=== PATIENT | female | born 1950 | race Caucasian/White ===

== ENCOUNTER → 2016-12-05 | Outpatient (CLI) | payer BC, OTHER ==
--- NOTE | 2016-12-05 13:33 | DIAGNOSTIC IMAGING REPORT ---
RIGHT ANKLE MIN 3 VIEWS CLINICAL HISTORY: 66 years-old Female presenting with RIGHT ANKLE PAIN Right. TECHNIQUE: Frontal, mortise, and lateral views of the right ankle were obtained. COMPARISON: None. FINDINGS: Smooth margined osseous fragment noted inferior to the medial malleolus possibly representing prior transversely oriented avulsion fracture with nonunion versus developmental os. No acute fracture or malalignment. Ankle mortise intact. Prominent bone spurs at the posterior and inferior calcaneus. No significant degenerative change. No second soft tissue swelling. IMPRESSION: No acute osseous injury of the right ankle. Findings suggestive of prior avulsion fracture at the medial malleolus versus developmental os. Electronically signed by: Kamari Suh M.D. 12/05/2016 1:32 PM Dictated Date/Time: 12/05/2016 1:30 PM
== END | disposition home or self-care (01) ==
LOC: C.RDSM 08:05
PROVIDERS: ATTEND Family Medicine
DX: M25.571 Pain in right ankle and joints of right foot (principal)

== ENCOUNTER → 2017-01-16 | Outpatient (CLI) | payer OTHER ==
--- NOTE | 2017-01-16 11:18 | DIAGNOSTIC IMAGING REPORT ---
LUMBAR SPINE MIN 4 VIEWS CLINICAL HISTORY: 66 years-old Female presenting with RIGHT ANKLE PAIN/WEAKNESS/NUMBNESS. TECHNIQUE: Frontal, bilateral oblique, lateral, and coned in lateral views lumbar spine were obtained. COMPARISON: None. FINDINGS: Normal lumbar lordosis. No scoliosis. Mild vertebral body height loss of L5. No wedging deformity to suggest compression fracture. Mild intervertebral disc height loss at L5-S1. Remaining intervertebral disc heights preserved. Osteophytosis noted at nearly every level. Facet arthropathy noted at L4-5 and L5-S1. Suspected osseous neural foraminal narrowing at these levels, greater at L5-S1. Assessment for pars defect limited due to suboptimal positioning on oblique views. Atherosclerosis. Moderate stool burden. IMPRESSION: Multilevel degenerative changes most severe at L4-5 and L5-S1, where there may be osseous neural foraminal narrowing. No radiographic evidence of acute osseous injury. Electronically signed by: Kamari Suh M.D. 01/16/2017 11:16 AM Dictated Date/Time: 01/16/2017 11:14 AM
== END | disposition home or self-care (01) ==
LOC: C.RDSM 14:55
PROVIDERS: ATTEND Family Medicine
DX: M25.571 Pain in right ankle and joints of right foot (principal); M21.41 Flat foot [pes planus] (acquired), right foot; M89.8X8 Other specified disorders of bone, other site

== ENCOUNTER → 2017-06-15 | Outpatient (CLI) | payer OTHER ==
--- NOTE | 2017-06-15 11:08 | DIAGNOSTIC IMAGING REPORT ---
R KNEE 4 OR MORE HISTORY: 67 years-old Female RIGHT KNEE PAIN chronic medial right knee pain COMPARISON: Right knee radiographs 10/12/2016 TECHNIQUE: AP view of the bilateral knees with sunrise, tunnel and lateral views of the right knee FINDINGS: Mild medial and lateral compartment osteoarthritis on the left with mild tricompartmental right knee osteoarthritis. There is a 4 mm surface osteophyte or intra-articular loose body projecting over the medial femoral condyle on the tunnel view. Enthesophytes noted along the superior and inferior aspects of the patella at the quadriceps and patellar tendon insertion sites respectively. There is no acute fracture or subluxation. Trace joint effusion. Peripheral vascular disease. IMPRESSION: 1. Mild tricompartmental osteoarthritis without acute fracture. 2. Trace joint effusion. 3. Peripheral vascular disease. The above report was generated using voice recognition software. It may contain grammatical, syntax or spelling errors. Electronically signed by: Tyrone Devlin M.D. 06/15/2017 11:07 AM Dictated Date/Time: 06/15/2017 11:05 AM
== END | disposition home or self-care (01) ==
LOC: C.RDSM 10:52
PROVIDERS: ATTEND Family Medicine
DX: M17.11 Unilateral primary osteoarthritis, right knee (principal)